=== PATIENT | male | born 1955 | race Caucasian/White ===

== ENCOUNTER 2024-10-14 16:34 | Observation (INO) ==
[2024-10-14 17:12] LABS: iSTAT Creatinine 0.7 mg/dl (0.6-1.3); iSTAT Hemoglobin 16.3 g/dl (14.0-18.0); iSTAT Ionized Calcium 1.03 mmol/l (1.12-1.32); iSTAT Potassium 3.2 mmol/L (3.3-5.0)
--- NOTE | 2024-10-14 17:13 | Emergency Department Note ---
Impression & Plan Alcohol withdrawal syndrome, Hypomagnesemia, Acute hypokalemia ED Provider Note NAME: MIKE BIGGS AGE: 69 SEX: Male INFORMANT: Patient ED PROVIDER(S): Ashok Hinds MD CHIEF COMPLAINT: Alcohol withdrawal PLAN: Disposition: Admitted Outpatient prescription management: none Referral: None MEDICAL DECISION MAKING: Patient presented with symptoms consistent with alcohol withdrawal. IV was established. He was hydrated. He was given IV Ativan and his vital signs improved. He was less shaky. He was also treated with Zofran and he had no additional nausea or vomiting. Patient had low magnesium and potassium. He was treated with IV thiamine, folate, magnesium, and potassium. Patient did have slight increase in his symptoms and was given additional lorazepam. ECG did show mild sinus tachycardia. No acute ischemia. Chest x-ray reveals no evidence of pneumonia. Radiology noted prominent gas in the upper abdomen which was most likely in bowel.. Patient has no peritoneal findings or tenderness on examination to consider perforation. Given his alcohol withdrawal symptoms and significant consumption he will need further management in the hospital. Patient and family in agreement. Consultation was made with Dr. Lynne of the [facility] service. Patient was evaluated in the ER for further management. Care/management discussed with: recreational resort manager Level of care consideration(s): After review of the information above and other included data, I feel the patient requires escalation of care to admission Triage Nursing notes: reviewed and agree them. Vital Signs: reviewed and remarkable for hypertension Additional History obtained from: none Chronic Medical/Social Conditions affecting care: Alcohol abuse Prior/ Outside/ External records reviewed: none Differential Diagnosis: Alcohol withdrawal, overdose, toxicologic, infection, hypoglycemia, electrolyte abnormalities, cardiac sources, intracerebral event, neurologic, trauma, as well as other pathologies. Diagnostics, independently interpreted by me: ECG: Twelve-lead ECG reveals a sinus tachycardia with PACs at 103 bpm. Anterior Q waves present. No ST elevation or depression. Cardiac Monitoring: Cardiac monitoring ordered by me: The patient was placed on continuous cardiac monitoring and observed. It revealed a normal sinus rhythm at 83 beats per minute without ectopy or evidence of dysrhythmia. Medical decision rules: none Imaging studies: Chest x-ray. Findings: A chest x-ray was performed and revealed no pneumothorax, effusion, infiltrate, pulmonary edema, or wide mediastinum. HPI: 69 year old Male arrives for evaluation of alcohol withdrawal. This started today and is recurrent problem. Drinks 1/2 liter per day. The patient also notes the following associated symptoms, shakiness, nausea, vomiting. The patient has taken no medications for relieving factors. Current pain is rated as 0/10. No recent illness. Pt denies LOC, headache, hallucinations, black outs, fevers, chills, diaphoresis, visual changes, neck pain, chest pain, breathing difficulties, abdominal pain, back pain, melena, hematochezia, urinary symptoms, numbness, weakness, lymphadenopathy, rash, or other complaints. PAST MEDICAL HISTORY: See Below, alcohol abuse PAST SURGICAL HISTORY: See Below, hernia SOCIAL HISTORY: See Below, drinks etoh daily HOME MEDICATIONS: See Below ALLERGIES: See Below VITALS: See Below PHYSICAL EXAMINATION: GENERAL: Awake, alert, uncomfortable-appearing, in no distress HENT: Normocephalic, atraumatic. Oropharynx unremarkable. EYES: Normal conjunctiva. Sclera non-icteric. NECK: Inspection normal. Non-tender. Supple. No nuchal rigidity. FROM. No masses. RESPIRATORY: Clear to auscultation. No wheezes. No rales. Normal respiratory effort. CARDIAC: Tachycardic rate. Normal rhythm. No murmurs. No rubs. Extremities warm and well perfused. Pulses equal. No JVD. GI: Soft, non-distended. No tenderness to palpation. No rebound or guarding. No masses. RECTAL: Deferred. MUSCULOSKELETAL: Atraumatic. Chest examination reveals no tenderness. The back is symmetrical on inspection without obvious abnormality. There is no CVA tenderness to palpation. No joint edema. LOWER EXTREMITIES: Calves are equal size bilaterally and non-tender. No edema. No discoloration. NEURO: Normal sensorium. No sensory or motor deficits noted. SKIN: No rash or jaundice noted. PROCEDURES: none CRITICAL CARE: I have personally spent 35 minutes of critical care time in the direct management of this patient. This includes bedside care, interpretation of diagnostic studies, and testing, discussion with consultants, patient, and family members, and other required patient management activities. These minutes are in excess of all separately billable procedures. OBSERVATION NOTE: none Past Med/Surg History Problem List (Updated 10/15/24 @ 01:15 by Ashok Hinds MD) Acute hypokalemia (Acute) Hypomagnesemia (Acute) Rash Alcohol withdrawal syndrome (Acute) S/P inguinal hernia repair Alcohol dependence S/P alcohol detoxification Seborrheic keratoses Dermal nevus Glaser angioma High cholesterol Left inguinal hernia Right inguinal hernia Medical History Patient denies significant medical history Surgical History H/O right inguinal hernia repair (05/19/21) Right Inguinal Hernia Open Repair with Mesh Dr. Zuniga 05/19/21 History of left inguinal hernia repair (03/31/21) Left Inguinal Hernia Open Repair with Possible Mesh(Left) - Alli Zuniga DO Hx of LASIK H/O colonoscopy 2008 Family History Mother Heart disease Cancer Father Heart disease Brother Heart disease Other No family history of adverse response to anesthesia Social History Smoking Status: Never smoker Second Hand Exposure: No; Do You Dip or Chew Tobacco: No; Hx Alcohol Use: Yes Alcohol type: hard liquor Hx Substance Use: No Preferred Language: Thai Communication Ability: Effective Licensed Embalmer Required: No Beliefs That Will Affect Care: None marital status: Current Living Situation: Spouse current occupational status: retired current occupation: Twist [employer] How many Children do You have: 0 Other Information That Helps Us Care for You: No Feels Safe at Home: Yes Safety Concerns: Feels Safe At This Time Assistive Devices: Glasses Allergies Allergies Allergy/AdvReac Type Severity Reaction Status Date / Time No Known Allergies Allergy _ Verified 06/03/21 08:49 Home Meds Home Medications Medication Instructions Recorded Confirmed cholecalciferol (vitamin D3) 25 25 mcg PO QAM 03/04/21 10/14/24 mcg (1,000 unit) capsule multivitamin (Daily Multi-Vitamin 1 tab PO QAM 03/04/21 10/14/24 tablet) zinc 50 mg tablet 50 mg PO .Q OTHER DAY 03/04/21 10/14/24 Results & Data (ED) Vital Signs Vital Signs - 24 hr 10/14/24 16:36 10/14/24 16:51 10/14/24 16:59 Temperature 36.5 C Temperature Source Temporal Artery Scan Pulse Rate 136 H 118 H Pulse Rate [Apical] 120 H Pulse Strength [Apical] Strong Respiratory Rate 18 23 Respiratory Effort / Characteristics Non-Labored Spontaneous Non-Labored Spontaneous Respiratory Depth Normal Blood Pressure 211/116 H Blood Pressure [Right Arm] 203/122 H Blood Pressure Mean 147 Blood Pressure Mean [Right Arm] 149 Blood Pressure Position Sitting Blood Pressure Position [Right Arm] Lying Pulse Oximetry 96 94 Oxygen Delivery Method Room Air Room Air Sepsis Recent Fever Within 48 Hours No Sepsis New/Unexplained Change in Mental Status No Sepsis Action Taken by Nursing No Action Required 10/14/24 17:28 10/14/24 18:34 10/14/24 19:20 Temperature Temperature Source Pulse Rate 111 H Pulse Rate [Apical] 99 H 100 H Pulse Strength [Apical] Respiratory Rate 18 21 20 Respiratory Effort / Characteristics Non-Labored Spontaneous Non-Labored Spontaneous Respiratory Depth Blood Pressure Blood Pressure [Right Arm] 164/104 H 168/103 H Blood Pressure Mean Blood Pressure Mean [Right Arm] 124 124 Blood Pressure Position Blood Pressure Position [Right Arm] Lying Lying Pulse Oximetry 92 92 93 Oxygen Delivery Method Room Air Room Air Room Air Sepsis Recent Fever Within 48 Hours Sepsis New/Unexplained Change in Mental Status Sepsis Action Taken by Nursing Laboratory Data 10/14/24 16:53 10/14/24 16:53 Lab Results 10/14/24 10/14/24 10/14/24 Range/Units 16:53 17:00 18:38 WBC 11.85 H (4.8-10.8) K/ul RBC 4.96 (4.70-6.10) M/uL Hgb 16.5 (14.0-18.0) g/dl POC Hgb 16.3 (14.0-18.0) g/dl Hct 45.1 (42.0-52.0) % POC Hct 48 (42-52) % MCV 90.9 (80.0-100.0) fL MCH 33.3 (25.0-34.0) pg MCHC 36.6 H (32.0-36.0) g/dL RDW Std Deviation 41.5 (36.4-46.3) fL RDW Coeff of Joes 12.4 (11.5-14.5) % Plt Count 296 (130-400) K/uL MPV 8.7 L (9.4-12.4) fL Immature Gran % (Auto) 0.8 % Neut % (Auto) 69.5 % Lymph % (Auto) 22.1 % Mcnairy % (Auto) 6.9 % Eos % (Auto) 0.1 % Baso % (Auto) 0.6 % Neut # (Auto) 8.24 H (1.40-6.50) K/uL Lymph # (Auto) 2.62 (1.20-3.40) K/uL Mcnairy # (Auto) 0.82 H (0.11-0.59) K/uL Eos # (Auto) 0.01 (0.00-0.50) K/uL Baso # (Auto) 0.07 (0.00-0.20) K/uL Immature Gran # (Auto) 0.09 (0.01-0.20) K/uL PT 10.9 (9.0-12.0) Seconds INR 1.0 (0.9-1.1) POC Sodium 135 (135-144) mmol/L Sodium 136 (136-145) mmol/L POC Potassium 3.2 L (3.3-5.0) mmol/L Potassium 3.2 L (3.5-5.1) mmol/L POC Chloride 97 L (101-112) mmol/L Chloride 95 L (98-107) mmol/L Carbon Dioxide 21 (21-32) mmol/L POC Total CO2 21 L (24-31) mmol/L Anion Gap 20 H (3-11) POC Anion Gap 21.0 (16-25) mmol/L POC BUN 6 L (7-18) mg/dl BUN 8 (6-23) mg/dl Creatinine 0.80 (0.6-1.4) mg/dl POC Creatinine 0.7 (0.6-1.3) mg/dl Est Cr Clr Drug Dosing 92.8 ml/min eGFR 95.21 BUN/Creatinine Ratio 10.0 (10-20) Glucose 141 H (70-99(Fasting)) mg/dl POC Glucose (other) 141 H (70-99) mg/dl Calcium 9.6 (8.6-10.3) mg/dl POC Ioniz Calcium Filippo 1.03 L (1.12-1.32) mmol/l Magnesium 1.2 L (1.7-2.4) mg/dl Total Bilirubin 1.1 H (0.2-1.0) mg/dl AST 25 (13-39) U/L ALT 13 (7-52) U/L Alkaline Phosphatase 60 (34-104) U/L Total Creatine Kinase 137 (30-223) U/L Troponin I High Sens 9.1 (0-20) pg/ml Total Protein 7.9 (6.0-8.3) gm/dl Albumin 5.0 (3.4-5.0) gm/dl Globulin 2.9 (2.5-4.0) gm/dl Albumin/Globulin Ratio 1.7 (0.9-2) Lipase 21 (11-82) U/L Urine Color Yellow Urine Appearance Clear (Clear) Urine pH 6.5 (4.5-7.5) Ur Specific Erin 1.007 (1.000-1.030) Urine Protein Negative (Negative) Urine Glucose (UA) Negative (Negative) Urine Ketones Trace H (Negative) Urine Blood Negative (Negative) Urine Nitrite Negative (Negative) Urine Bilirubin Negative (Negative) Urine Urobilinogen Negative (Negative) Ur Leukocyte Esterase Negative (Negative) Urine Opiates Screen Neg (Neg) Ur Methadone, Qual Neg (Neg) Urine Fentanyl Screen Neg (Neg) Urine Barbiturates Neg (Neg) Ur Phencyclidine (PCP) Neg (Neg) U Amphetamin/Meth Scrn Neg (Neg) MDMA (Ecstasy) Screen Neg (Neg) U Benzodiazepines Scrn Neg (Neg) Ur Cocaine Metabolite Neg (Neg) U Marijuana (THC) Screen Neg (Neg) Ethyl Alcohol mg/dL < 10.0 (<10.0) mg/dl Administered Medications Discontinued Medications Thiamine HCl 100 mg/ Syringe 10 mls @ 2 mls/min IV NOW STA Stop: 10/14/24 17:05 Last Admin: 10/14/24 17:56 Dose: 2 mls/min Documented By: KATIA Folic Acid 1 mg/ Syringe 10 mls @ 5 mls/min IV NOW STA Stop: 10/14/24 17:02 Last Admin: 10/14/24 17:56 Dose: 5 mls/min Documented By: KATIA Sodium Chloride (Nss) 500 mls @ 999 mls/hr IV .Q31M ONE Stop: 10/14/24 17:31 Last Infusion: 12/08/24 18:16 Dose: Infused Documented By: Admin: 10/14/24 17:18 Dose: 999 mls/hr Documented By: RAYRAY Sodium Chloride (Nss) 1,000 mls @ 125 mls/hr IV .Q8H [facility] Stop: 10/15/24 17:14 Last Infusion: 10/14/24 22:12 Dose: Infused Documented By: Admin: 10/14/24 17:57 Dose: 125 mls/hr Documented By: KATIA Magnesium Sulfate/Dextrose (Magnesium Sulfate / D5w) 1 gm in 100 mls @ 50 mls/hr IV Q2H [facility] Stop: 10/14/24 21:59 Last Infusion: 10/14/24 22:45 Dose: Infused Documented By: Admin: 10/14/24 20:23 Dose: 50 mls/hr Documented By: Infusion: 10/14/24 20:23 Dose: Infused Documented By: Admin: 10/14/24 18:23 Dose: 50 mls/hr Documented By: RAYRAY Potassium Chloride (K Krishna / Wtr) 10 meq in 100 mls @ 100 mls/hr IV ONE ONE; Protocol Stop: 10/14/24 18:47 Last Infusion: 10/14/24 19:39 Dose: Infused Documented By: Admin: 10/14/24 18:26 Dose: 100 mls/hr Documented By: RAYRAY Lorazepam (Lorazepam 1 Mg/1 Ml Syr Ed Inj Use) 2 mg IV Q20M PRN PRN Reason: Alcohol Withdrawal Stop: 11/13/24 17:14 Last Admin: 10/14/24 19:48 Dose: 2 mg Documented By: Admin: 10/14/24 17:17 Dose: 2 mg Documented By: RAYRAY Ondansetron HCl (Ondansetron Inj 2 Mg/Ml 2 Ml Vial) 4 mg IV NOW STA Stop: 10/14/24 17:02 Last Admin: 10/14/24 17:16 Dose: 4 mg Documented By: RAYRAY Phenobarbital Sodium (Phenobarbital Sodium 130 Mg/Ml Vial) 195 mg IM NOW STA Stop: 10/14/24 22:25 Last Admin: 10/14/24 22:43 Dose: 195 mg Documented By: MADHU Imaging Data Radiologist's Impression: Chest X-Ray 10/14/24 17:02 EXAM: Radiograph of the Chest 1 View INDICATION: Chest pain. TECHNIQUE: Frontal view of the chest. COMPARISON: 02/26/2021 FINDINGS: Lungs and pleural spaces: No consolidation or pulmonary edema. No pleural effusion or pneumothorax. Heart: Shape and configuration within normal limits allowing for technique. Mediastinum: Normal contour. Bones/joints: No fracture, erosion or dislocation. Soft tissues: No abnormality noted. No radiopaque foreign body noted. Upper abdomen: There is prominent lucency in the upper abdomen which is probably air in bowel. IMPRESSION: 1. No acute cardiopulmonary disease. 2. There is prominent lucency in the upper abdomen which is probably air in bowel. Appearance is not typical for free air. Depending on symptoms, consider abdominal radiographs or CT. ACT 112: Negative or not required by law. Electronically signed by Iqra Ortega 10-14-2024 6:13 PM Discharge Plan Visit Data Chief Complaint: Alcohol Withdrawal Stated Complaint: ALCOHOL WITHDRAWL ED Provider: Ashok Hinds Discharge Problem: Alcohol withdrawal syndrome, Hypomagnesemia, Acute hypokalemia Patient Disposition: Admitted As Inpatient Discharge Instructions Interventions: ED Discharge Assessment Last Done: 10/14/24 21:40
[2024-10-14] MEDS: ONDANSETRON INJ 2 MG/ML 2 ML VIAL IV STA (17:16)
[2024-10-14] MEDS: LORazepam 1 MG/1 ML SYR ED Inj Use IV PRN (17:17)
[2024-10-14] MEDS: SODIUM CHLORIDE 0.9% 500 ML IV ONE (17:18)
[2024-10-14 17:23] LABS: Basophils # (auto) 0.07 K/uL (0.00-0.20); Basophils % (auto) 0.6 %; Eosinophils # (auto) 0.01 K/uL (0.00-0.50); Eosinophils % (auto) 0.1 %; Hematocrit (blood only) 45.1 % (42.0-52.0); Hemoglobin 16.5 g/dl (14.0-18.0); Immature Granulocytes # (auto) 0.09 K/uL (0.01-0.20); Immature Granulocytes % (auto) 0.8 %; Lymphocytes # (auto) 2.62 K/uL (1.20-3.40); Lymphocytes % (auto) 22.1 %; Mean Corpuscular Hemoglobin 33.3 pg (25.0-34.0); Mean Corpuscular Hgb Conc 36.6 g/dL (32.0-36.0); Mean Corpuscular Volume 90.9 fL (80.0-100.0); Mean Platelet Volume 8.7 fL (9.4-12.4); Monocytes # (auto) 0.82 K/uL (0.11-0.59); Monocytes % (auto) 6.9 %; Neutrophils # (auto) 8.24 K/uL (1.40-6.50); Neutrophils % (auto) 69.5 %; Platelet Count 296 K/uL (130-400); RDW Coefficient of Variation 12.4 % (11.5-14.5); RDW Standard Deviation 41.5 fL (36.4-46.3); Red Blood Count 4.96 M/uL (4.70-6.10); White Blood Count 11.85 K/ul (4.8-10.8)
[2024-10-14 17:30] LABS: Albumin Globulin Ratio 1.7 (0.9-2); Bilirubin,Total 1.1 mg/dl (0.2-1.0); Calcium 9.6 mg/dl (8.6-10.3); Creatinine Clr Calc Pharmacy 92.8 ml/min; Globulin 2.9 gm/dl (2.5-4.0); Magnesium 1.2 mg/dl (1.7-2.4); Potassium 3.2 mmol/L (3.5-5.1); Total Protein 7.9 gm/dl (6.0-8.3)
[2024-10-14 17:36] LABS: Troponin I High Sensitivity 9.1 pg/ml (0-20)
[2024-10-14 17:52] LABS: Prothrombin Time 10.9 Seconds (9.0-12.0)
[2024-10-14] MEDS: THIAMINE HCL 100 MG in SYRINGE 9 ML IV STA (17:56)
[2024-10-14] MEDS: FOLIC ACID 1 MG in SYRINGE 9.8 ML IV STA (17:56)
[2024-10-14] MEDS: SODIUM CHLORIDE 0.9% 1,000 ML IV SCH (17:57)
--- NOTE | 2024-10-14 18:13 | XRay Report ---
EXAM: Radiograph of the Chest 1 View INDICATION: Chest pain. TECHNIQUE: Frontal view of the chest. COMPARISON: 02/26/2021 FINDINGS: Lungs and pleural spaces: No consolidation or pulmonary edema. No pleural effusion or pneumothorax. Heart: Shape and configuration within normal limits allowing for technique. Mediastinum: Normal contour. Bones/joints: No fracture, erosion or dislocation. Soft tissues: No abnormality noted. No radiopaque foreign body noted. Upper abdomen: There is prominent lucency in the upper abdomen which is probably air in bowel. IMPRESSION: 1. No acute cardiopulmonary disease. 2. There is prominent lucency in the upper abdomen which is probably air in bowel. Appearance is not typical for free air. Depending on symptoms, consider abdominal radiographs or CT. ACT 112: Negative or not required by law. Electronically signed by Iqra Ortega 10-14-2024 6:13 PM
[2024-10-14] MEDS: MAGNESIUM SULFATE / D5W 1 GM/100 ML BAG IV SCH (18:23)
[2024-10-14] MEDS: POTASSIUM CHLORIDE / WTR 10 MEQ/100 ML PLCT IV ONE (18:26)
[2024-10-14 18:56] LABS: Appearance Urine Clear (Clear); Bilirubin Urine Negative (Negative); Blood Urine Negative (Negative); Color Urine Yellow; Glucose Urine UA Negative (Negative); Ketones Urine Trace (Negative); Leukocyte Esterase Urine Negative (Negative); Nitrite Urine Negative (Negative); Protein Urine Negative (Negative); Specific Gravity Urine 1.007 (1.000-1.030); Urobilinogen Urine Negative (Negative); pH Urine 6.5 (4.5-7.5)
[2024-10-14 19:23] LABS: Amphetamines+Metham, Urine Neg (Neg); Barbiturates, Urine Neg (Neg); Benzodiazepine, Urine Neg (Neg); Cocaine, Urine Neg (Neg); Fentanyl, Urine Neg (Neg); MDMA (Ecstacy), Urine Neg (Neg); Marijuana, Urine Neg (Neg); Methadone, Urine Neg (Neg); Opiate, Urine Neg (Neg); Phencyclidine, Urine Neg (Neg)
--- NOTE | 2024-10-14 19:50 | History & Physical Report ---
Date of Service October 14, 2024 Assessment & Plan (1) Alcohol withdrawal syndrome: Plan: 69yo male with history of alcohol use disorder presenting with EtOH withdrawal symptoms. Patient typically drinks appx 17 drinks per day sometimes more. His last drink was 10/13/24 around 16:00. Had some tremors today which brought him to the hospital. No history of seizures or hallucinations. No history of liver disease. -Admit to PCU -Management with Phenobarbital - IM Load x 3 doses: 195mg + 130mg + 130mg followed by Phenobarbital PO taper dose - 60mg po q 12 hours x 2 doses followed by 30mg po q 12 hours x 2 doses followed by 30mg q 24 hours x 1 dose -PRN IM Phenobarbital 65mg available for RASS >2 -Ativan as needed per AWSS protocol -Maintain seizure precautions -Thiamine 100mg po daily -Folic Acid 1mg po daily -MVI daily -Zofran PRN nausea (2) Rash: Plan: Patient with rash on left thigh, appears fungal -Nystatin daily Plan F/E/N - received IVF, Mg and K repletion, Heart healthy diet as tolerated Ppx - Low risk for DVT, encourage ambulation, would initiate chemoprophylaxis if prolonged hospital stay Code - Full Dispo - Admit to PCU History of Present Illness Chief Complaint: Alcohol withdrawal Primary Care Provider: DO Rishabh Mchugh Celio is a 69-year-old male with history of alcohol use disorder and hypertension presenting with alcohol withdrawal. Patient with daily EtOH use. Reports drinking 1/5 of Vodka (appx 17 standard drinks) over the course of 1-2 days. His last drink was yesterday 10/13/24 around 16:00. Today He began to experience some tremors and shaking. No seizures or hallucinations. Patient with longstanding history of drinking. Reports that he has drank heavily for at least the last 15 years. He does identify is an alcoholic and participated in AA meetings occasional but does not do so regularly. He has been to rehab years ago but did not find it to be very helpful. Patient is reluctant to attempt rehab again. Is interested in possible medications outpatient to assist with remaining sober. In the ER patient tachycardic at 111 bpm, markedly hypertensive with blood pressure 203/122. Normal respirations with adequate oxygenation on room air ER course: Ativan 2mg IV Potassium 10mEeq Thiamine 100mg Folate 1mg Magnesium 2gm NSS x 1L Zofran 4mg IV Allergies Allergy/AdvReac Type Severity Reaction Status Date / Time No Known Allergies Allergy _ Verified 06/03/21 08:49 Home Medications Medication Instructions Recorded Confirmed Type cholecalciferol (vitamin D3) 25 25 mcg PO QAM 03/04/21 10/14/24 History mcg (1,000 unit) capsule multivitamin (Daily Multi-Vitamin 1 tab PO QAM 03/04/21 10/14/24 History tablet) zinc 50 mg tablet 50 mg PO .Q OTHER DAY 03/04/21 10/14/24 History Past Med/Surg History Problem List (Updated 10/14/24 @ 23:51 by Svetlana Lynne DO) Rash Alcohol withdrawal syndrome (Acute) S/P inguinal hernia repair Alcohol dependence S/P alcohol detoxification Seborrheic keratoses Dermal nevus Glaser angioma High cholesterol Left inguinal hernia Right inguinal hernia Medical History Patient denies significant medical history Surgical History H/O right inguinal hernia repair (05/19/21) Right Inguinal Hernia Open Repair with Mesh Dr. Zuniga 05/19/21 History of left inguinal hernia repair (03/31/21) Left Inguinal Hernia Open Repair with Possible Mesh(Left) - Alli Zuniga DO Hx of LASIK H/O colonoscopy 2008 Family History Mother Heart disease Cancer Father Heart disease Brother Heart disease Other No family history of adverse response to anesthesia Social History Smoking Status: Never smoker Second Hand Exposure: No; Do You Dip or Chew Tobacco: No; Hx Alcohol Use: Yes Hx Substance Use: Yes Preferred Language: Gibralt[place] Communication Ability: Effective Electronic Prepress Operator Required: No Beliefs That Will Affect Care: None marital status: Current Living Situation: Spouse current occupational status: retired current occupation: [employer] Operator How many Children do You have: 0 Feels Safe at Home: Yes Assistive Devices: Glasses Review of Systems Review of Systems: All systems reviewed & are unremarkable except as noted in HPI & below Physical Exam Physical Exam: General: patient resting comfortably, NAD, non-toxic in appearance, AA&O x 4 Skin: warm, dry, intact, rash present on left inner thigh - well circumscribed round lesions, erythematous with scaling HEENT: NC/AT, PERRL, EOMI, anicteric sclera, conjunctiva without injection, external ear normal to inspection and nontender, nares patent, moist mucus membranes, dentition intact, no oropharyngeal lesions, neck supple, trachea midline, no LAD, no thyromegaly, no JVD Heart: +S1/S2, regular, tachycardic, no m/r/g Lungs: equal air entry bilaterally, no rales/rhonchi/wheezes Abd: +BS, soft, NT/ND, no masses/organomegaly/ascites Ext: warm, 2+ pulses in UE/LE bilaterally, no clubbing/cyanosis or edema Neuro: nonfocal, patient AA&O x 4, speech intact, no facial droop, moving all extremities on command with equal strength 5/5, mild tremors Results & Data Results & Data Vital Signs (Past 12 Hours) Vital Signs Temp Pulse Pulse Resp BP BP Pulse Ox 10/14/24 19:20 100 H 20 168/103 H 93 10/14/24 18:34 99 H 21 164/104 H 92 10/14/24 17:28 111 H 18 92 10/14/24 16:59 118 H 10/14/24 16:51 120 H 23 203/122 H 94 10/14/24 16:36 36.5 C 136 H 18 211/116 H 96 O2 Del Method 10/14/24 19:20 Room Air 10/14/24 18:34 Room Air 10/14/24 17:28 Room Air 10/14/24 16:59 10/14/24 16:51 Room Air 10/14/24 16:36 Room Air Laboratory Results Laboratory Results WBC 11.85 K/ul (4.8-10.8) H 10/14/24 16:53 RBC 4.96 M/uL (4.70-6.10) 10/14/24 16:53 Hgb 16.5 g/dl (14.0-18.0) 10/14/24 16:53 POC Hgb 16.3 g/dl (14.0-18.0) 10/14/24 17:00 Hct 45.1 % (42.0-52.0) 10/14/24 16:53 POC Hct 48 % (42-52) 10/14/24 17:00 MCV 90.9 fL (80.0-100.0) 10/14/24 16:53 MCH 33.3 pg (25.0-34.0) 10/14/24 16:53 MCHC 36.6 g/dL (32.0-36.0) H 10/14/24 16:53 RDW Std Deviation 41.5 fL (36.4-46.3) 10/14/24 16:53 RDW Coeff of Jose 12.4 % (11.5-14.5) 10/14/24 16:53 Plt Count 296 K/uL (130-400) 10/14/24 16:53 MPV 8.7 fL (9.4-12.4) L 10/14/24 16:53 Immature Gran % (Auto) 0.8 % 10/14/24 16:53 Neut % (Auto) 69.5 % 10/14/24 16:53 Lymph % (Auto) 22.1 % 10/14/24 16:53 Coffey % (Auto) 6.9 % 10/14/24 16:53 Eos % (Auto) 0.1 % 10/14/24 16:53 Baso % (Auto) 0.6 % 10/14/24 16:53 Neut # (Auto) 8.24 K/uL (1.40-6.50) H 10/14/24 16:53 Lymph # (Auto) 2.62 K/uL (1.20-3.40) 10/14/24 16:53 Coffey # (Auto) 0.82 K/uL (0.11-0.59) H 10/14/24 16:53 Eos # (Auto) 0.01 K/uL (0.00-0.50) 10/14/24 16:53 Baso # (Auto) 0.07 K/uL (0.00-0.20) 10/14/24 16:53 Immature Gran # (Auto) 0.09 K/uL (0.01-0.20) 10/14/24 16:53 PT 10.9 Seconds (9.0-12.0) 10/14/24 16:53 INR 1.0 (0.9-1.1) 10/14/24 16:53 POC Sodium 135 mmol/L (135-144) 10/14/24 17:00 Sodium 136 mmol/L (136-145) 10/14/24 16:53 POC Potassium 3.2 mmol/L (3.3-5.0) L 10/14/24 17:00 Potassium 3.2 mmol/L (3.5-5.1) L 10/14/24 16:53 POC Chloride 97 mmol/L (101-112) L 10/14/24 17:00 Chloride 95 mmol/L (98-107) L 10/14/24 16:53 Carbon Dioxide 21 mmol/L (21-32) 10/14/24 16:53 POC Total CO2 21 mmol/L (24-31) L 10/14/24 17:00 Anion Gap 20 (3-11) H 10/14/24 16:53 POC Anion Gap 21.0 mmol/L (16-25) 10/14/24 17:00 POC BUN 6 mg/dl (7-18) L 10/14/24 17:00 BUN 8 mg/dl (6-23) 10/14/24 16:53 Creatinine 0.80 mg/dl (0.6-1.4) 10/14/24 16:53 POC Creatinine 0.7 mg/dl (0.6-1.3) 10/14/24 17:00 Est Cr Clr Drug Dosing 92.8 ml/min 10/14/24 16:53 eGFR 95.21 10/14/24 16:53 BUN/Creatinine Ratio 10.0 (10-20) 10/14/24 16:53 Glucose 141 mg/dl (70-99(Fasting)) H 10/14/24 16:53 POC Glucose (other) 141 mg/dl (70-99) H 10/14/24 17:00 Calcium 9.6 mg/dl (8.6-10.3) 10/14/24 16:53 POC Ioniz Calcium Filippo 1.03 mmol/l (1.12-1.32) L 10/14/24 17:00 Magnesium 1.2 mg/dl (1.7-2.4) L 10/14/24 16:53 Total Bilirubin 1.1 mg/dl (0.2-1.0) H 10/14/24 16:53 AST 25 U/L (13-39) 10/14/24 16:53 ALT 13 U/L (7-52) 10/14/24 16:53 Alkaline Phosphatase 60 U/L (34-104) 10/14/24 16:53 Total Creatine Kinase 137 U/L (30-223) 10/14/24 16:53 Troponin I High Sens 9.1 pg/ml (0-20) 10/14/24 16:53 Total Protein 7.9 gm/dl (6.0-8.3) 10/14/24 16:53 Albumin 5.0 gm/dl (3.4-5.0) 10/14/24 16:53 Globulin 2.9 gm/dl (2.5-4.0) 10/14/24 16:53 Albumin/Globulin Ratio 1.7 (0.9-2) 10/14/24 16:53 Lipase 21 U/L (11-82) 10/14/24 16:53 Urine Color Yellow 10/14/24 18:38 Urine Appearance Clear (Clear) 10/14/24 18:38 Urine pH 6.5 (4.5-7.5) 10/14/24 18:38 Ur Specific [place] 1.007 (1.000-1.030) 10/14/24 18:38 Urine Protein Negative (Negative) 10/14/24 18:38 Urine Glucose (UA) Negative (Negative) 10/14/24 18:38 Urine Ketones Trace (Negative) H 10/14/24 18:38 Urine Blood Negative (Negative) 10/14/24 18:38 Urine Nitrite Negative (Negative) 10/14/24 18:38 Urine Bilirubin Negative (Negative) 10/14/24 18:38 Urine Urobilinogen Negative (Negative) 10/14/24 18:38 Ur Leukocyte Esterase Negative (Negative) 10/14/24 18:38 Urine Opiates Screen Neg (Neg) 10/14/24 18:38 Ur Methadone, Qual Neg (Neg) 10/14/24 18:38 Urine Fentanyl Screen Neg (Neg) 10/14/24 18:38 Urine Barbiturates Neg (Neg) 10/14/24 18:38 Ur Phencyclidine (PCP) Neg (Neg) 10/14/24 18:38 U Amphetamin/Meth Scrn Neg (Neg) 10/14/24 18:38 MDMA (Ecstasy) Screen Neg (Neg) 10/14/24 18:38 U Benzodiazepines Scrn Neg (Neg) 10/14/24 18:38 Ur Cocaine Metabolite Neg (Neg) 10/14/24 18:38 U Marijuana (THC) Screen Neg (Neg) 10/14/24 18:38 Ethyl Alcohol mg/dL < 10.0 mg/dl (<10.0) 10/14/24 16:53 Impressions Chest X-Ray 10/14/24 17:02 EXAM: Radiograph of the Chest 1 View INDICATION: Chest pain. TECHNIQUE: Frontal view of the chest. COMPARISON: 02/26/2021 FINDINGS: Lungs and pleural spaces: No consolidation or pulmonary edema. No pleural effusion or pneumothorax. Heart: Shape and configuration within normal limits allowing for technique. Mediastinum: Normal contour. Bones/joints: No fracture, erosion or dislocation. Soft tissues: No abnormality noted. No radiopaque foreign body noted. Upper abdomen: There is prominent lucency in the upper abdomen which is probably air in bowel. IMPRESSION: 1. No acute cardiopulmonary disease. 2. There is prominent lucency in the upper abdomen which is probably air in bowel. Appearance is not typical for free air. Depending on symptoms, consider abdominal radiographs or CT. ACT 112: Negative or not required by law. Electronically signed by Iqra Ortega 10-14-2024 6:13 PM ECG Additional Comments: EKG per my interpretation with sinus tachycardia, no acute ischemia PG Care Time/CCT Total # of Minutes Spent Total Time Spent with Patient: Total time spent is greater than 50% in coordination of care (as documented) at patient's floor/unit and/or counseling patient: Coding Level of Care Code 77088 INT INP/OBS CARE 3/75MIN Diagnoses Alcohol withdrawal syndrome F10.939 Rash R21
[2024-10-14] MEDS ORDERED: Ativan IV Alcohol Withdrawal--Active Protocol IV PRN (22:10)
[2024-10-14] MEDS ORDERED: PHENobarbital sodium 65 MG/ML VIAL IM PRN (22:10)
[2024-10-14] MEDS ORDERED: LORazepam 2 MG/1 ML VIAL IV PRN ×3 (22:10)
[2024-10-14] MEDS ORDERED: ONDANSETRON INJ 2 MG/ML 2 ML VIAL IV PRN (22:10)
[2024-10-14] MEDS: PHENobarbital sodium 130 MG/ML VIAL IM STA (22:43)
[2024-10-15] MEDS: PHENobarbital sodium 130 MG/ML VIAL IM SCH (02:20)
[2024-10-15] MEDS: POTASSIUM CHLORIDE CRTAB 20 MEQ TABCR PO STA (02:20)
[2024-10-15] MEDS: MAGNESIUM SULFATE / D5W 1 GM/100 ML BAG IV SCH (02:21)
[2024-10-15 07:12] LABS: Basophils # (auto) 0.06 K/uL (0.00-0.20); Basophils % (auto) 1.1 %; Eosinophils # (auto) 0.08 K/uL (0.00-0.50); Eosinophils % (auto) 1.5 %; Hematocrit (blood only) 39.1 % (42.0-52.0); Hemoglobin 14.1 g/dl (14.0-18.0); Immature Granulocytes # (auto) 0.02 K/uL (0.01-0.20); Immature Granulocytes % (auto) 0.4 %; Lymphocytes # (auto) 1.47 K/uL (1.20-3.40); Mean Corpuscular Hemoglobin 33.5 pg (25.0-34.0); Mean Corpuscular Hgb Conc 36.1 g/dL (32.0-36.0); Mean Corpuscular Volume 92.9 fL (80.0-100.0); Mean Platelet Volume 8.9 fL (9.4-12.4); Monocytes # (auto) 0.62 K/uL (0.11-0.59); Monocytes % (auto) 11.4 %; Neutrophils % (auto) 58.6 %; Platelet Count 199 K/uL (130-400); RDW Coefficient of Variation 12.6 % (11.5-14.5); RDW Standard Deviation 42.9 fL (36.4-46.3); Red Blood Count 4.21 M/uL (4.70-6.10); White Blood Count 5.45 K/ul (4.8-10.8)
[2024-10-15] MEDS: PHENobarbital PO Alcohol Withdrawal PO STA (07:19)
[2024-10-15 07:45] LABS: Albumin Globulin Ratio 1.6 (0.9-2); Albumin Level 3.9 gm/dl (3.4-5.0); BUN Creatinine Ratio 9.3 (10-20); Bilirubin,Total 1.4 mg/dl (0.2-1.0); Calcium 8.6 mg/dl (8.6-10.3); Creatinine Clr Calc Pharmacy 99.2 ml/min; Globulin 2.4 gm/dl (2.5-4.0); Magnesium 2.7 mg/dl (1.7-2.4); Potassium 4.2 mmol/L (3.5-5.1); Total Protein 6.3 gm/dl (6.0-8.3)
[2024-10-15] MEDS: NYSTATIN POWDER 15GM BTL EXT SCH (07:54)
[2024-10-15] MEDS: MULTIVITAMIN TAB PO SCH (07:54)
[2024-10-15] MEDS: FOLIC ACID 1 MG TAB PO SCH (07:54)
[2024-10-15] MEDS: THIAMINE HCL 100 MG TAB PO SCH (07:54)
--- NOTE | 2024-10-15 10:14 | Electrocardiogram Report ---
Test Reason : Blood Pressure : */* mmHG Vent. Rate : 103 BPM Atrial Rate : 103 BPM P-R Int : 150 ms QRS Dur : 80 ms QT Int : 342 ms P-R-T Axes : 21 2 12 degrees QTcB Int : 448 ms Sinus tachycardia with with occasional Premature ventricular complexes Poor R wave progression, consider anterior GA vs. lead placement vs. LVH Abnormal ECG When compared with ECG of 20-Mar-2021 11:41, Premature ventricular complexes now present Vent. rate has increased by 34 bpm Confirmed by Angelito Ortiz ([id number]) on 10/15/2024 10:14:06 AM Referred By: Confirmed By: Angelito Ortiz
--- NOTE | 2024-10-15 15:42 | Hospitalist Progress Note ---
Date of Service October 15, 2024 Assessment & Plan (1) Alcohol withdrawal syndrome: Plan: 69yo male with history of alcohol use disorder presenting with EtOH withdrawal symptoms. Patient typically drinks appx 17 drinks per day sometimes more. His last drink was 10/13/24 around 16:00. Had some tremors today which brought him to the hospital. No history of seizures or hallucinations. No history of liver disease. -Admit to PCU -Management with Phenobarbital - IM Load x 3 doses: 195mg + 130mg + 130mg followed by Phenobarbital PO taper dose - 60mg po q 12 hours x 2 doses followed by 30mg po q 12 hours x 2 doses followed by 30mg q 24 hours x 1 dose -PRN IM Phenobarbital 65mg available for RASS >2 -Ativan as needed per AWSS protocol -Maintain seizure precautions -Thiamine 100mg po daily -Folic Acid 1mg po daily -MVI daily -Zofran PRN nausea Symptoms appear controlled on 10/15. will monitor. (2) Rash: Plan: Patient with rash on left thigh, appears fungal -Nystatin daily Plan F/E/N - received IVF, Mg and K repletion, Heart healthy diet as tolerated Ppx - Low risk for DVT, encourage ambulation, would initiate chemoprophylaxis if prolonged hospital stay Code - Full Dispo - Admit to PCU Admission and Anticipated Discharge Date Admission Date: October 14, 2024 Subjective Patient reports no new symptoms. He feels much better today compared to yesterday. He has no tremors. Physical Exam Physical Exam: General: patient resting comfortably, NAD, non-toxic in appearance, AA&O x 4 Skin: warm, dry, intact HEENT: NC/AT Heart: tachycardic, Lungs: not using accessory muscles to breath. Ext: , no clubbing/cyanosis or edema Neuro: nonfocal, patient AA&O x 4 Results & Data Results & Data Vital Signs (Past 12 Hours) Vital Signs Temp Pulse Pulse Resp BP BP Pulse Ox 10/15/24 15:23 36.7 C 96 H 19 168/106 H 96 10/15/24 11:46 36.9 C 87 18 178/108 H 97 10/15/24 08:24 36.3 C L 96 H 18 164/100 H 98 10/15/24 05:48 75 18 145/98 H 10/15/24 05:40 36.5 C 75 18 145/98 H 95 O2 Del Method 10/15/24 15:23 Room Air 10/15/24 11:46 Room Air 10/15/24 08:24 Room Air 10/15/24 05:48 10/15/24 05:40 Room Air PG Care Time/CCT Total # of Minutes Spent Total Time Spent with Patient: Total time spent is greater than 50% in coordination of care (as documented) at patient's floor/unit and/or counseling patient: Coding Level of Care Code 71228 SUB INP/OBS CARE 2/35MIN Diagnoses Alcohol withdrawal syndrome F10.939 Rash R21
[2024-10-15] MEDS: PHENobarbitaL 30 MG TAB PO SCH (16:26)
[2024-10-16 06:38] LABS: Hematocrit (blood only) 41.6 % (42.0-52.0); Hemoglobin 14.7 g/dl (14.0-18.0); Mean Corpuscular Hgb Conc 35.3 g/dL (32.0-36.0); Mean Corpuscular Volume 93.5 fL (80.0-100.0); Platelet Count 188 K/uL (130-400); RDW Coefficient of Variation 12.5 % (11.5-14.5); RDW Standard Deviation 43.2 fL (36.4-46.3); Red Blood Count 4.45 M/uL (4.70-6.10); White Blood Count 5.26 K/ul (4.8-10.8)
[2024-10-16 06:58] LABS: BUN Creatinine Ratio 12.3 (10-20); Bilirubin Direct 0.2 mg/dl (0-0.2); Bilirubin,Total 1.3 mg/dl (0.2-1.0); Calcium 8.6 mg/dl (8.6-10.3); Creatinine Clr Calc Pharmacy 91.4 ml/min; Potassium 3.6 mmol/L (3.5-5.1); Total Protein 6.5 gm/dl (6.0-8.3)
[2024-10-16] MEDS: PHENobarbitaL 30 MG TAB PO SCH (17:26)
--- NOTE | 2024-10-16 23:02 | Hospitalist Progress Note ---
Date of Service October 16, 2024 Assessment & Plan (1) Alcohol withdrawal syndrome: Plan: 69yo male with history of alcohol use disorder presenting with EtOH withdrawal symptoms. Patient typically drinks appx 17 drinks per day sometimes more. His last drink was 10/13/24 around 16:00. Had some tremors today which brought him to the hospital. No history of seizures or hallucinations. No history of liver disease. -Admit to PCU -Management with Phenobarbital - IM Load x 3 doses: 195mg + 130mg + 130mg followed by Phenobarbital PO taper dose - 60mg po q 12 hours x 2 doses followed by 30mg po q 12 hours x 2 doses followed by 30mg q 24 hours x 1 dose -PRN IM Phenobarbital 65mg available for RASS >2 -Ativan as needed per AWSS protocol -Maintain seizure precautions -Thiamine 100mg po daily -Folic Acid 1mg po daily -MVI daily -Zofran PRN nausea Symptoms appear controlled on 10/16. Plan to discharge on 10/17 as phenobarbital taper is ending (2) Rash: Plan: Patient with rash on left thigh, appears fungal -Nystatin daily Plan F/E/N - received IVF, Mg and K repletion, Heart healthy diet as tolerated Ppx - Low risk for DVT, encourage ambulation, would initiate chemoprophylaxis if prolonged hospital stay Code - Full Admission and Anticipated Discharge Date Admission Date: October 14, 2024 Subjective 69 malereports no new symptoms Review of Systems Review of Systems: All systems reviewed & are unremarkable except as noted in HPI & below Physical Exam Physical Exam: General: patient resting comfortably, NAD, non-toxic in appearance, AA&O x 4 Skin: warm, dry, intact HEENT: NC/AT Heart: tachycardic, Lungs: not using accessory muscles to breath. Ext: , no clubbing/cyanosis or edema Neuro: nonfocal, patient AA&O x 4 Results & Data Results & Data Vital Signs (Past 12 Hours) Vital Signs Temp Pulse Pulse Resp BP Pulse Ox O2 Del Method 10/16/24 22:40 36.6 C 86 18 139/78 96 Room Air 10/16/24 19:26 37 C 90 18 140/87 95 Room Air 10/16/24 14:46 36.6 C 91 H 18 137/87 94 Room Air 10/16/24 14:08 88 10/16/24 12:07 36.4 C L 86 18 161/100 H 97 Room Air PG Care Time/CCT Total # of Minutes Spent Total Time Spent with Patient: Total time spent is greater than 50% in coordination of care (as documented) at patient's floor/unit and/or counseling patient: Coding Level of Care Code 42854 SUB INP/OBS CARE 2/35MIN Diagnoses Alcohol withdrawal syndrome F10.939 Rash R21
[2024-10-17 07:51] VITALS: BP 143/99; PULSE 80; RESP 18; TEMP 97.3; O2SAT 96
--- NOTE | 2024-10-17 08:52 | Discharge Summary ---
Discharge Summary Date of Service October 17, 2024 Principal Dx & Hospital Course #1 = Principal Diagnosis (1) Alcohol withdrawal syndrome: 69yo male with history of alcohol use disorder presenting with EtOH withdrawal symptoms. Patient typically drinks appx 17 drinks per day sometimes more. His last drink was 10/13/24 around 16:00. Had some tremors today which brought him to the hospital. No history of seizures or hallucinations. No history of liver disease. -Admit to PCU -Management with Phenobarbital - IM Load x 3 doses: 195mg + 130mg + 130mg followed by Phenobarbital PO taper dose - 60mg po q 12 hours x 2 doses followed by 30mg po q 12 hours x 2 doses followed by 30mg q 24 hours x 1 dose -PRN IM Phenobarbital 65mg available for RASS >2 -Ativan as needed per AWSS protocol -Maintain seizure precautions -Thiamine 100mg po daily -Folic Acid 1mg po daily -MVI daily -Zofran PRN nausea Symptoms appear controlled on 10/16. Plan to discharge on 10/17. Will complete taper at home and then start Naltrexone for alcohol addiction. (2) Rash: Patient with rash on left thigh, appears fungal -Nystatin daily Admission HPI Per Admitting Provider Rishabh Pickens is a 69-year-old male with history of alcohol use disorder and hypertension presenting with alcohol withdrawal. Patient with daily EtOH use. Reports drinking 1/5 of Vodka (appx 17 standard drinks) over the course of 1-2 days. His last drink was yesterday 10/13/24 around 16:00. Today He began to experience some tremors and shaking. No seizures or hallucinations. Patient with longstanding history of drinking. Reports that he has drank heavily for at least the last 15 years. He does identify is an alcoholic and participated in AA meetings occasional but does not do so regularly. He has been to rehab years ago but did not find it to be very helpful. Patient is reluctant to attempt rehab again. Is interested in possible medications outpatient to assist with remaining sober. In the ER patient tachycardic at 111 bpm, markedly hypertensive with blood pressure 203/122. Normal respirations with adequate oxygenation on room air ER course: Ativan 2mg IV Potassium 10mEeq Thiamine 100mg Folate 1mg Magnesium 2gm NSS x 1L Zofran 4mg IV Discharge Exam General: patient resting comfortably, NAD, non-toxic in appearance, AA&O x 4 Skin: warm, dry, intact HEENT: NC/AT Heart: tachycardic, Lungs: not using accessory muscles to breath. Ext: , no clubbing/cyanosis or edema Neuro: nonfocal, patient AA&O x 4 Discharge Plan Discharge Items Patient Disposition: Home - Self-Care Reason For Visit: ETOH WITHDRAWAL Discharge Diagnosis: Etoh withdrawal Activity: Resume your previous activity Non-emergency contact: Primary Care Provider Call non-emergency contact if: you have any medication questions Follow-up/Referrals: Herminio Vasquez DO [Primary Care Provider] - 10/24/24 11:20 am (Hospital follow up on October 24 at 11:20 am ) Diet: Regular Addtl Attending Provider Instructions: Tomorrow will be your last day of Phenobarbital 30 mg in the AM for alcohol withdrawal. On Tuesday, we will be starting you Naltrexone for alcohol use disorder. We will initiate with a 50 mg dose. The side effects are the following: Neurologic: headache, dizziness, sleep disturbance. Gastrointestinal: nausea, decreased appetite, abdominal pain. Hepatic: increased transaminases. Your primary care doctor will monitor your blood work to make sure you are tolerating this medicine. Recommend close followup with PCP in 1-2 weeks. I also continued to ordered nystatin for 5 more days for your rash. Pending Studies at Discharge: No Stand-Alone Forms: My [facility], Smoking Cessation Medications and DC Order Prescriptions: New thiamine HCl (vitamin B1) 100 mg Tablet 100 mg PO QAM Qty: 30 0RF phenobarbital 30 mg Tablet 30 mg PO Q24H Qty: 1 0RF Rx Instructions: only dose will be 10/18 folic acid 1 mg Tablet 1 mg PO QAM Qty: 30 0RF nystatin [Nystop] 100,000 unit/gram Powder 1 applic EXT BID Qty: 15 0RF Rx Instructions: for 5 days, to affected thigh area. naltrexone 50 mg tablet 50 mg PO DAILY Qty: 30 0RF Rx Instructions: First dose on 10/19 Continued cholecalciferol (vitamin D3) 25 mcg (1,000 unit) capsule 25 mcg PO QAM zinc 50 mg tablet 50 mg PO .Q OTHER DAY multivitamin [Daily Multi-Vitamin] Tablet 1 tab PO QAM Discharge Orders: Discharge Order (Routine); Ordered 10/17/24 Ordered By: Jorge Graham Admission Data Admit Date/Time: 10/14/24 19:48 Attending Provider: Jorge Graham Admit Provider: Svetlana Lynne Primary Care Provider: Herminio Vasquez Other Providers: Svtelana Lynne Other Interventions: Discharge Summary Assessment (RN) Last Done: 10/17/24 09:12 Hospital Stay Data Consultations 10/14/24 18:44 ED Decision to Admit Stat Pending Results Patient Have Any Pending Studies at Discharge: No Discharge Instructions Given to Patient (Per Discharging Provider) Tomorrow will be your last day of Phenobarbital 30 mg in the AM for alcohol withdrawal. On Tuesday, we will be starting you Naltrexone for alcohol use disorder. We will initiate with a 50 mg dose. The side effects are the following: Neurologic: headache, dizziness, sleep disturbance. Gastrointestinal: nausea, decreased appetite, abdominal pain. Hepatic: increased transaminases. Your primary care doctor will monitor your blood work to make sure you are tolerating this medicine. Recommend close followup with PCP in 1-2 weeks. I also continued to ordered nystatin for 5 more days for your rash. Total Time Total Time Spent Total Time Spent (In Minutes): 35 Coding Level of Care Code 88983 INP/OBS DISCH >30 MIN Diagnoses Alcohol withdrawal syndrome F10.939 Rash R21
[2024-10-18] MEDS ORDERED: PHENobarbitaL 30 MG TAB PO SCH (05:00)
== END 2024-10-17 09:40 | disposition home or self-care (01) | DRG 897 ==
LOC: ED 16:34 → SUATTDRO 19:48 → INTOOBSV 19:48 → 2E 19:48